=== PATIENT | male | born 1945 | race Caucasian/White ===

== ENCOUNTER → 2018-10-21 08:52 | Outpatient (CLI) | payer OTHER, SELFPAY ==
--- NOTE | 2018-10-21 | DI.MRI.S_ITS ---
PROCEDURE: MR BRAIN (IAC) WWO CON INDICATIONS: Other cerebrovascular disease TECHNIQUE: Noncontrast sagittal T1 spin echo, axial FLAIR, axial gradient echo, axial diffusion and ADC through the brain. Axial thin-slice 3D CISS, coronal TruFISP, axial T1 spin echo with fat saturation through the internal auditory canals. After the administration of contrast, thin slice axial and coronal T1 spin echo with fat saturation through the internal auditory canals, and axial T1 spin echo with fat saturation through the brain. COMPARISON: [facility], , [employer], 07/04/2016, 12:44. FINDINGS: Image quality: Excellent. Cerebellopontine angles: No cerebellopontine angle masses. Inner ear structures appear normally formed. No suspicious enhancement in the internal auditory canal or along the course of the 7th cranial nerve. CSF spaces: Ventricles are normal in size and shape. No extra-axial fluid collections. Basal cisterns are patent. Brain: No intracranial bleeds or mass effects. Singh-white matter interface is intact. No abnormal intracranial enhancement. Diffusion weighted images demonstrate no acute ischemic insults. Brainstem appears normal. Normal intravascular flow voids are present. Skull and face: Calvarial marrow signal is normal. Orbits appear normal. Sinuses: Mild to moderate mucosal thickening is seen within the left maxillary sinus. Mild mucosal thickening is seen elsewhere within the paranasal sinuses. There is moderate fluid seen within the right mastoid air cells. IMPRESSION: No significant abnormality is seen. Specifically, no masses or abnormal enhancement are seen within the cerebellopontine angle cisterns or within the internal auditory canals. No masses or abnormal enhancement can be seen elsewhere. No findings of acute or subacute infarction can be seen. Dictated by: Liang Lemon M.D. on 10/21/2018 at 9:27 Approved by: Liang Lemon M.D. on 10/21/2018 at 9:30
== END ==
PROVIDERS: PCP Internal Medicine; Visit Provider Internal Medicine
DX: I67.89 Other cerebrovascular disease (principal)
CPT/HCPCS: 70553; A9579

== ENCOUNTER 2019-04-08 12:00 | Outpatient (RCR) | payer OTHER, SELFPAY ==
--- NOTE | 2019-03-03 17:30 | PT.OPPOC ---
Current Diagnoses Benign paroxysmal vertigo, unspecified ear (03/03/19) Dizziness and giddiness (03/03/19) Provider Visit Care Team Role Provider Type Osvaldo Chandler MD Attending Provider Physician Primary Care Provider Specialty: Internal Medicine Address: [address] [place] [address], [id number] Email: Plan Of Care PT-OP-T Assessment and Plan Start: 03/03/19 17:40 Freq: Status: Active Protocol: Document 03/03/19 15:15 DCW (Rec: 03/04/19 08:53 DCW [id number]) Physical Therapy Assessment Rehab Potential Rehabilitation Potential Good Evaluation Complexity Number of Personal Factors/Comorbidities 0 Number of Body Systems Impaired 1-2 Clinical Presentation at Evaluation Stable Impairments Impairments Balance Vestibular Goals One Impairment Ongoing subjective complaints of occasional imbalance Janitorial Tech Goal (LTG) Pt to report no sensation of imbalance with quick head turns LTG Duration 04/03/19 Assessment Summary Assessment Pt presents with an entirely negative vestibular evaluation , with the exception of a mildly positive bilaterally thrust and heave tests, which is likely suggestive of normal age-related vestibular loss. Pt has no indications of either central or peripheral vestibular dysfunction. Pt's subjective explanation of his history is fairly suggestive of BPPV, especially his episodes of vertigo with rolling in bed, and the fact that self-treating with CRM appears to have helped eliminate that symptom. 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 Due to the waxing and waning nature of BPPV, however, sometimes pt presents with a negative evaluation. Pt should return within the next week or two for a reassessment of positional testing, as well as other balance testing, to determine further course of action. Physical Therapy Plan Frequency and Duration Frequency of Treatment 1x/Week Duration of Treatment 8 weeks Plan of Care Start Date 03/03/19 Plan of Care End Date 04/28/19 Therapeutic Interventions Therapeutic Interventions Balance Training Canalithic Repositioning Vestibular Rehabilitation Next Visit Focus/Plan Next Note Type Treatment Note Next Visit Plan Balance testing, Positional retesting, CRM as indicated Plan of Care Dates Plan of Care Start Date 03/03/19 Plan of Care End Date 04/28/19 Please Sign and Return: I have reviewed this Plan of Care and certify that the skilled therapy services above are required to meet the patient?s needs. Physician Signature Date Printed Name and Credentials Clinical Instructor Signature Printed Name and Credentials
--- NOTE | 2019-03-03 17:30 | PT.OIE ---
Current Diagnoses Benign paroxysmal vertigo, unspecified ear (03/03/19) Dizziness and giddiness (03/03/19) Provider Visit Care Team Role Provider Type Osvaldo Chandler MD Attending Provider Physician Primary Care Provider Specialty: Internal Medicine Address: [address] [place] [address], [id number] Email: Physical Therapy Initial Evaluation PT-OP-A Visit Information Start: 03/03/19 17:40 Freq: Status: Active Protocol: Document 03/03/19 15:15 DCW (Rec: 03/04/19 08:53 DCW [id number]) Out-Patient Physical Therapy Visit Information Visit Information Visit Type Initial Evaluation Visit Start Time 15:15 Visit Stop Time 16:05 Total Visit Minutes 50 Visit Number 1 Number of TRANSITION SOCIAL WORKER Visits 0 Evaluation Information Evaluation Date 03/03/19 PT-OP-B Current Condition Start: 03/03/19 17:40 Freq: Status: Active Protocol: Document 03/03/19 15:15 DCW (Rec: 03/04/19 08:53 DCW [id number]) Current Condition History of Current Condition Onset Date Six months Current Complaints Imbalance, occasional episodes of vertigo History of Current Condition Pt is a 74 year old male complaining of a 6 month history of dizziness. Pt notes that initially, he had a few episodes of vertigo lasting 10 seconds when rolling over onto his right side in bed. Pt reports he was seen by a physician, diagnosed with positional vertigo, and told to bring up videos on YouTube to fix it. Pt reports that since he did that, he has not been having the same sudden-onset dizziness, however is now experiencing a general sense of imbalance. Pt does admit that he has had two recent incidents of spinning vertigo, again lasting about 10 seconds, however he is unsure of any positional changes preceding these events. 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 Pt denies recent hearing changes, tinnitus, diplopia, dysarthria, discoordination, or decreased mentation/ consciousness. Pt reports symptoms are waxing/waning in nature. Pt denies hx of HTN, diabetes, arrhythmia, head trauma, seizure, migraines, back/neck problems, anxiety/ panic disorders, depression, or excessive smoking or drinking. Prior Treatments and Tests Brain MRI: Negative Treatment Goals Patient/Caregiver Goals Eliminate sensations of vertigo/imbalance Prior Functional Status Baseline Function- ADL's Independent Baseline Function- Mobility Independent Current Functional Impairments (Reported) Functional Limitations- Other Pt notes he is not limited in anything, he is just tired of feeling off-balance PT-OP-C Subjective Start: 03/03/19 17:40 Freq: Status: Active Protocol: Document 03/03/19 15:15 DCW (Rec: 03/04/19 08:53 DCW [id number]) OP-PT Subjective Patient Comments Patient Comments It's just difficult putting my finger on what's happening. I can't really match it to anything I'm doing, it just seems to come and go. Patient Questionnaires ABC- Activity Specific Balance Confidence Scale ABC Score 92.19 ABC Functional Impairment 1 to <20% Impaired (Score 81- 99) Dizziness Handicap Inventory DHI Score 14% DHI Functional Impairment 1 to 19% Impaired (Score 1-19) OP-PT Pain Assessment Pain Assessment Grid Paper Pain Assessment Grid Completed Yes: N/A PT-OP-D Balance Start: 03/03/19 17:40 Freq: Status: Active Protocol: Document 03/03/19 15:15 DCW (Rec: 03/04/19 08:53 DCW [id number]) OP-PT Balance Assessment Sitting Balance Static Sitting Balance Ability Normal Dynamic Sitting Balance Ability Normal Standing Balance Static Standing Balance Ability Normal Dynamic Standing Balance Ability Normal Balance Tests Romberg Romberg WNL Single Limb Standing Single Limb- Right WNL Single Limb- Left WNL Amezquita Fall Scale Copyright Permission PT-OP-O Vestibular Start: 03/03/19 17:40 Freq: Status: Active Protocol: Document 03/03/19 15:15 DCW (Rec: 03/04/19 08:53 DCW [id number]) Vestibular Assessment Screening Tests Vestibular Artery Screen Negative Sharp-Cristiane Test Negative Auditory Tests Stark Test Negative Rinne Test Negative Air Conduction Results Equal Visual Testing Smooth Pursuits Horizontal WNL Smooth Pursuits Vertical WNL Saccades Horizontal WNL Gaze Evoked Nystagmus With Fixation Negative Gaze Evoked Nystagmus Without Fixation Negative Heave Test Positive Bilateral Thrust Head Positive Bilateral DVA (Line Degradation) 2 Head Shake Negative Spontaneous Nystagmus Negative Positional Testing [place]-Hallpike Negative Left Negative Right Rolling Test Negative Left Negative Right Supine to Sit Negative Sit to Supine Negative Comments Vestibular Comments Thrust/heave tests mildly positive bilaterally PT-OP-T Assessment and Plan Start: 03/03/19 17:40 Freq: Status: Active Protocol: Document 03/03/19 15:15 DCW (Rec: 03/04/19 08:53 DCW [id number]) Physical Therapy Assessment Rehab Potential Rehabilitation Potential Good Evaluation Complexity Number of Personal Factors/Comorbidities 0 Number of Body Systems Impaired 1-2 Clinical Presentation at Evaluation Stable Impairments Impairments Balance Vestibular Goals One Impairment Ongoing subjective complaints of occasional imbalance Chcf Goal (LTG) Pt to report no sensation of imbalance with quick head turns LTG Duration 04/03/19 Assessment Summary Assessment Pt presents with an entirely negative vestibular evaluation , with the exception of a mildly positive bilaterally thrust and heave tests, which is likely suggestive of normal age-related vestibular loss. Pt has no indications of either central or peripheral vestibular dysfunction. Pt's subjective explanation of his history is fairly suggestive of BPPV, especially his episodes of vertigo with rolling in bed, and the fact that self-treating with CRM appears to have helped eliminate that symptom. 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 Due to the waxing and waning nature of BPPV, however, sometimes pt presents with a negative evaluation. Pt should return within the next week or two for a reassessment of positional testing, as well as other balance testing, to determine further course of action. Physical Therapy Plan Frequency and Duration Frequency of Treatment 1x/Week Duration of Treatment 8 weeks Plan of Care Start Date 03/03/19 Plan of Care End Date 04/28/19 Therapeutic Interventions Therapeutic Interventions Balance Training Canalithic Repositioning Vestibular Rehabilitation Next Visit Focus/Plan Next Note Type Treatment Note Next Visit Plan Balance testing, Positional retesting, CRM as indicated
--- NOTE | 2019-04-08 12:37 | PT.OTN ---
Current Diagnoses Benign paroxysmal vertigo, unspecified ear (04/08/19) Physical Therapy Treatment Note PT-OP-A Visit Information Start: 03/03/19 17:40 Freq: Status: Active Protocol: Document 04/08/19 12:00 DCW (Rec: 04/08/19 12:36 DCW [id number]) Out-Patient Physical Therapy Visit Information Visit Information Visit Type Treatment Note Visit Start Time 12:00 Visit Stop Time 12:30 Total Visit Minutes 30 Visit Number 2 Number of MODEL ENGINE MECHANIC Visits 0 Evaluation Information Evaluation Date 03/03/19 PT-OP-B Current Condition Start: 03/03/19 17:40 Freq: Status: Active Protocol: Document 03/03/19 15:15 DCW (Rec: 03/04/19 08:53 DCW [id number]) Current Condition History of Current Condition Onset Date Six months Current Complaints Imbalance, occasional episodes of vertigo History of Current Condition Pt is a 74 year old male complaining of a 6 month history of dizziness. Pt notes that initially, he had a few episodes of vertigo lasting 10 seconds when rolling over onto his right side in bed. Pt reports he was seen by a physician, diagnosed with positional vertigo, and told to bring up videos on [employer] to fix it. Pt reports that since he did that, he has not been having the same sudden-onset dizziness, however is now experiencing a general sense of imbalance. Pt does admit that he has had two recent incidents of spinning vertigo, again lasting about 10 seconds, however he is unsure of any positional changes preceding these events. 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 Pt denies recent hearing changes, tinnitus, diplopia, dysarthria, discoordination, or decreased mentation/ consciousness. Pt reports symptoms are waxing/waning in nature. Pt denies hx of HTN, diabetes, arrhythmia, head trauma, seizure, migraines, back/neck problems, anxiety/ panic disorders, depression, or excessive smoking or drinking. Prior Treatments and Tests Brain MRI: Negative Treatment Goals Patient/Caregiver Goals Eliminate sensations of vertigo/imbalance Prior Functional Status Baseline Function- ADL's Independent Baseline Function- Mobility Independent Current Functional Impairments (Reported) Functional Limitations- Other Pt notes he is not limited in anything, he is just tired of feeling off-balance PT-OP-C Subjective Start: 03/03/19 17:40 Freq: Status: Active Protocol: Document 04/08/19 12:00 DCW (Rec: 04/08/19 12:36 DCW [id number]) OP-PT Subjective Patient Comments Patient Comments I really haven't had any issues since I was in here last. I've just kind of stopped focusing on it. I was on vacation for the past month , swimming and biking every day, and had no problems. PT-OP-D Balance Start: 03/03/19 17:40 Freq: Status: Active Protocol: Document 04/08/19 12:00 DCW (Rec: 04/08/19 12:36 DCW [id number]) Balance Tests CTSIB CTSIB Position 1 Slight Sway CTSIB Position 2 Slight Sway CTSIB Position 3 Mild Sway CTSIB Position 4 Mild Sway CTSIB Position 5 Mild Sway CTSIB Position 6 Mild Sway PT-OP-E Functional Tests Start: 04/08/19 12:30 Freq: Status: Active Protocol: Document 04/08/19 12:00 DCW (Rec: 04/08/19 12:36 DCW [id number]) Functional Tests Functional Gait Assessment Score 30/30 Functional Gait Assessment Impairment 0% Impaired (Score 30) Rating PT-OP-O Vestibular Start: 03/03/19 17:40 Freq: Status: Active Protocol: Document 04/08/19 12:00 DCW (Rec: 04/08/19 12:36 DCW [id number]) Vestibular Assessment Positional Testing Mountain-Hallpike Negative Left Negative Right Rolling Test Negative Left Negative Right Supine to Sit Negative Sit to Supine Negative PT-OP-Q Treatments Start: 03/03/19 17:40 Freq: Status: Active Protocol: Document 04/08/19 12:00 DCW (Rec: 04/08/19 12:36 DCW [id number]) Manual Therapy Treatment Other Other Manual Treatments Positional Testing Neuro Re-Education Treatment Other Activities Testing Details CTSIB, FGA PT-OP-T Assessment and Plan Start: 03/03/19 17:40 Freq: Status: Active Protocol: Document 04/08/19 12:00 DCW (Rec: 04/08/19 12:36 DCW [id number]) Physical Therapy Assessment Impairments Impairments Balance Vestibular Goals One Impairment Ongoing subjective complaints of occasional imbalance Medical Videographer Goal (LTG) Pt to report no sensation of imbalance with quick head turns LTG Duration Met Assessment Summary Assessment Pt again has no indication of BPPV or otther vestibular disorder, no evidence of imbalance with CTSIB or FGA. Pt feels he has not been noticing any ongoing issues. Pt appropriate for d/c at this time. Physical Therapy Plan Frequency and Duration Frequency of Treatment 1x/Week Duration of Treatment 8 weeks Plan of Care Start Date 03/03/19 Plan of Care End Date 04/28/19 Therapeutic Interventions Therapeutic Interventions Balance Training Canalithic Repositioning Vestibular Rehabilitation Discharge Physical Therapy Discharge Reasons Goals Met Next Visit Focus/Plan Next Note Type Discharge Summary
== END 2019-04-08 14:34 | disposition home or self-care (01) ==
LOC: PHYS 12:00
PROVIDERS: PCP Internal Medicine; Visit Provider Internal Medicine
DX: H81.10 Benign paroxysmal vertigo, unspecified ear (principal)
CPT/HCPCS: 97112; 97140; 97161

== ENCOUNTER 2019-09-25 03:14 | Emergency (ER) | payer MEDICARE, SELFPAY ==
[2019-09-25 03:18] VITALS: BP 156/91; PULSE 85; RESP 16; TEMP 36.9; O2SAT 100; BMI 23.6
--- NOTE | 2019-09-25 03:27 | PC.NURSE ---
awoke from sleep with sharp right shoulder pain that radiates down right arm causing some numb tingling sensations.
--- NOTE | 2019-09-25 03:27 | ED.BACK ---
HPI - Back Pain/Injury General Chief Complaint: Back Pain/Injury Stated Complaint: Radiating back pain Time Seen by Provider: 09/25/19 03:27 Source: patient Mode of arrival: Ambulatory Limitations: no limitations History of Present Illness HPI Narrative: 74-year-old male here for evaluation of right upper back pain with tingling in his right hand. Patient states that he woke up from his sleep to go use the restroom when he started noticing pain in his right upper back in the then had pain in his right arm. His rubbed some topical cream on the area and provided some massage. Patient states that during his drive here to the ER his symptoms have greatly improved. He had no chest pain. No other neurologic symptoms. Has never anything like this in the past. Related Data Allergies Allergy/AdvReac Type Severity Reaction Status Date / Time No Known Allergies Allergy Uncoded 12/23/17 11:49 Review of Systems Constitutional Constitutional: Denies fever(s), Denies frequent falls, Denies headache(s) and Denies weakness Eyes Eyes: Denies change in vision and Denies diplopia ENT Ears, Nose, Mouth, and Throat: Denies vertigo, Denies dizziness, Denies dry mouth, Denies headache(s) and Denies disequilibrium Cardiovascular Cardiovascular: Denies chest pain, Denies rapid heart rate and Denies dyspnea Respiratory Respiratory: Denies dyspnea Gastrointestinal Gastrointestinal: Denies abdominal pain, Denies nausea and Denies vomiting Genitourinary Genitourinary: Denies dysuria Musculoskeletal Musculoskeletal: Denies myalgias and Reports tingling Comments: Right shoulder pain Integumentary/Breasts Skin/Breast: Denies rash Neurologic Neurologic: Denies abnormal speech, Denies behavioral changes, Denies confusion, Denies vertigo, Denies dizziness, Denies frequent falls, Denies headache(s), Denies focal weakness, Reports tingling, Denies paresthesias, Denies disequilibrium and Denies weakness Psychiatric Psychiatric: Denies behavioral changes and Denies confusion Patient History Medical History Healthy adult (Acute) Social History Smoking Status: Never smoker Smoking Status: Never smoker alcohol intake frequency: 0-2 drinks per day Alcohol type: wine Substance Use Type: does not use Exam Initial Vital Signs Initial Vital Signs: Vital Signs Temperature 98.4 F 09/25/19 03:18 Pulse Rate 85 09/25/19 03:18 Respiratory Rate 16 09/25/19 03:18 Blood Pressure 156/91 H 09/25/19 03:18 Pulse Oximetry 100 09/25/19 03:18 Const General: cooperative, healthy appearing and comfortable HENMT Head: normal to inspection and normocephalic Resp Effort & Inspection: normal respiratory effort Auscultation: clear to auscultation bilaterally Cardio Rate: regular rate Rhythm: regular rhythm Back/Spine/Pelvis Other: Tenderness to palpation over the rhomboids and levator scapulae on the right. Skin Lesions: no lesions Rashes: no rashes Neuro General: alert, awake and oriented x3 Sensory Exam: no sensory deficits noted Extrem General: normal to inspection and capillary refill normal Course Orders Ordered: ED Orders 09/25/19 03:27 EKG-12 Lead Stat Vital Signs Vital signs: Vital Signs - 8 hr 09/25/19 03:18 Temperature 98.4 F Pulse Rate 85 Respiratory Rate 16 Blood Pressure 156/91 H Pulse Oximetry 100 MDM - Back Pain/Injury ECG Data Attestation: I personally reviewed and interpreted this ECG as follows: Prior ECG tracings: not available for review Interpretation: Sinus rhythm Ventricular rate 82 Normal axis LVH Normal QTC No ST T wave changes MDM Narrative Medical decision making narrative: Patient was concerned about having a heart attack. His EKG is unremarkable. I've low suspicion for ACS. I do suspect this is musculoskeletal issue. His symptoms seemed to have improved. We'll hold on further work up for now. They're given return precautions and follow-up instructions. They expressed understanding and agreement plan. Discharge Plan Departure Patient Disposition: Home Clinical Impression: Radiculopathy of arm Right shoulder pain Qualifiers: Chronicity: acute Qualified Code(s): M25.511 - Pain in right shoulder Activity Restrictions/Additional Instructions: Recommend you do the light stretching like we discussed. If your symptoms worsen please return to the emergency department. Contact your primary provider for follow-up Referrals: Osvaldo Chandler MD [Primary Care Provider] -
== END 2019-09-25 03:54 | disposition home or self-care (01) ==
PROVIDERS: Emergency Provider Emergency Medicine; PCP Internal Medicine
DX: M54.10 Radiculopathy, site unspecified (principal); M25.511 Pain in right shoulder
CPT/HCPCS: 93005; 99282; 99283

== ENCOUNTER → 2021-01-29 19:21 | Outpatient (ROUT) | payer MEDICARE, SELFPAY ==
[2021-01-29 20:00] LABS: Add Manual Diff / Slide Review NO; Basophils Absolute Auto 0 /uL (0-100); Basophils Percent Auto 0.6 % (0-2); Eosinophils Absolute Auto 100 /uL (0-450); Eosinophils Percent Auto 1.5 % (2-4); Hematocrit 43.6 % (41-53); Hemoglobin 14.8 g/dL (13.5-17.5); Lymphocytes Absolute Auto 1300 /uL (1100-4500); Lymphocytes Percent Auto 22.1 % (25-40); Mean Corpuscular HGB Conc 33.9 % (30-36); Mean Corpuscular Hemoglobin 32.5 PG (26-34); Mean Corpuscular Volume 95.9 fL (80-100); Monocytes Absolute Auto 800 /uL (0-900); Monocytes Percent Auto 12.5 % (3-14); Neutrophils Absolute Auto 3900 /uL (1500-7000); Neutrophils Percent Auto 63.3 % (50-75); Platelet Count 324 X10^3/uL (150-400); Red Blood Cell Count 4.55 X10^6/uL (4.5-5.9); Red Cell Distribution Width 13.4 % (11.6-14.8); White Blood Cell Count 6.1 X10^3/uL (4.5-11.0)
[2021-01-29 20:18] LABS: Aspartate Aminotransferase 36 IU/L (17-59); BUN Creatinine Ratio 18.3 (6-22); Blood Urea Nitrogen 13 mg/dL (9-20); Calcium 9.8 mg/dL (8.4-10.2); Carbon Dioxide 26 mmol/L (22-32); Chloride 105 mmol/L (98-107); Cholesterol 214 mg/dL (140-199); Estimated Glomerular Filt Rate > 60.0 mL/min (>60); Glucose 79 mg/dL (80-110); HDL Cholesterol 54 mg/dL (40-60); HEMOLYSIS < 15 (0-50); LDL Cholesterol Calculated 126 mg/dL (<100); Potassium 4.7 mmol/L (3.4-5.1); Sodium 139 mmol/L (137-145); Triglycerides 170 mg/dL (35-150)
[2021-01-29 20:48] LABS: Prostate Specific Antigen 0.846 ng/mL (0.10-4.00)
== END ==
PROVIDERS: PCP Internal Medicine; Visit Provider Internal Medicine
DX: I10 Essential (primary) hypertension (principal)
CPT/HCPCS: 80048; 80061; 84153; 84450; 85025

== ENCOUNTER → 2021-03-29 09:25 | Outpatient (CLI) | payer OTHER, SELFPAY ==
[2021-03-29 11:36] LABS: COVID19 -Nasal RAPID Negative (Negative)
== END ==
PROVIDERS: PCP Internal Medicine; Visit Provider Surgery
DX: Z01.812 Encounter for preprocedural laboratory examination (principal); Z20.822 Contact with and (suspected) exposure to COVID-19
CPT/HCPCS: 87635; C9803

== ENCOUNTER 2021-04-01 09:40 | Day surgery (SDC) | payer OTHER, SELFPAY ==
[2021-04-01] VITALS (7 sets, daily range): BP systolic 97–144; BP diastolic 60–79; PULSE 76–91; RESP 12–16; TEMP 36.2–37.1; O2SAT 95–100; BMI 22.3
--- NOTE | 2021-04-01 | PATH_ITS ---
[facility] Accession Number: [id number] . 01 Material submitted: . colon - ASCENDING COLON POLYP . 02 Diagnosis: Ascending Colon, Polyp, Biopsy: Colonic mucosa with no diagnostic abnormality, consistent with polypoid redundancy. Additional levels were examined. Negative for dysplasia and malignancy. MRV 04/05/2021 1439 Local . 02 Electronically signed: . Lenore Hook MD, Pathologist NPI- [id number] . 01 Gross description: . ASCENDING COLON POLYP: Received in formalin is 1 fragment(s) of marie, soft tissue measuring 0.7 x 0.7 x 0.2 cm submitted entirely in 1 cassette(s) /HEBER 04/02/2021 0527 Local . 02 Pathologist provided ICD-10: K63.5 . 02 CPT . 981784 Performed at: 01 [facility] [address], [place], [place] [id number] MD Johnson Chery MD Phone: [phone] Performed at: [facility] [address] [place], [place] [id number] MD Lenore Hook MD Phone: [phone]
[2021-04-01] MEDS: LACTATED RINGERS 1,000 ML 200 ML IV (10:28)
--- NOTE | 2021-04-01 10:37 | P.HP_ITS ---
History of Present Illness History of Present Illness Date Patient Seen: 04/01/21 Time Patient Seen: 10:37 Chief complaint: SDC Narrative: The patient presents for colorectal sreening. Previous colonoscopy 2009 normal. No personal or family history of colon cancer. On further history denies any recent gastrointestinal symptoms. No nausea, vomiting, abdominal pain, loss of appetite, unexplained weight loss, change in bowel habits, diarrhea, constipation, melena, hematochezia, or bright red blood per rectum. Patient History Medical History Healthy adult Comment: Extensive abdominal surgery in childhood unspecified Family & Social History Social History: household members spouse Tobacco & Substance use: Smoking Status Never smoker alcohol intake frequency 0-2 drinks per day Substance Use Type does not use Meds Home Medications and Allergies Home Medications Medication Instructions Recorded Confirmed Type clopidogrel 75 mg tablet 75 mg PO DAILY 04/01/21 04/01/21 History ezetimibe 10 mg tablet 10 mg PO DAILY 04/01/21 04/01/21 History Allergies Allergy/AdvReac Type Severity Reaction Status Date / Time Ktxcowt-Jww-Etk Reductase AdvReac Muscle Pain Verified 04/01/21 09:58 Inhibitor Review of Systems Review of Systems ROS: Yes All systems reviewed with the patient and are negative except as otherwise documented Exam Vital Signs (past 8 hours): - 04/01/21 10:04 Temperature 97.2 F L Pulse Rate 91 H Respiratory Rate 14 Blood Pressure 144/79 H Pulse Oximetry 100 Oxygen Delivery Method Room Air Narrative Exam Narrative: GENERAL-well developed elderly male, no acute distress HEENT-no scleral icterus, hearing intact NECK-no JVD, trachea midline CVS- regular rate, no peripheral edema RESP-unlabored respiratory effort, no audible wheezing GI-soft, nontender nondistended MSK-no cyanosis or clubbing, extremities without deformity SKIN-warm, dry NEURO-alert and oriented, no focal deficits PYSCH-Appropriate mood and affect Assessment & Plan Assessment & Plan narrative: The patient requires colorectal screening and c olonoscopy is recommended. Technical details were discussed. Risks, benefits, alternatives explained. Risks including but not limited to myocardial infarction, aspiration, bleeding, pain, missed lesion, incomplete examination, need for further radiographic studies, colonic perforation, and need for major abdominal surgery were discussed. All questions were answered to their satisfaction, and they are in agreement with this plan.
[2021-04-01] MEDS: fentaNYL 250 MCG/5 ML INJ IV (11:03)
[2021-04-01] MEDS: MIDAZOLAM 5 MG/5 ML VIAL IV (11:03)
--- NOTE | 2021-04-01 11:06 | PM.OP.ENDO ---
Operative Date/Time/Diagnoses Date of procedure: 04/01/21 Time of procedure: 11:06 Pre-op diagnosis: Screening colonoscopy Post-op diagnosis: same Procedure & Clinicians Study performed: Colonoscopy Same procedure as scheduled: Yes Indications: Screening Surgeon: Morgan Melendez Procedure Notes Procedure in detail: Medications: Conscious sedation using 7mg IV midazolam and 200mcg IV of fentanyl The history and physical was performed/updated and the patient is ASA class is 2. The procedure was discussed in detail with the patient. Potential risks complications including infection, bleeding, missed diagnosis, perforation, need for surgery, and were explained. Their questions were answered and informed consent was obtained. Patient was brought to the procedure room and placed standard monitoring equipment. The patient's vital signs were monitored continuously throughout the entire procedure. Prior to starting time-out was performed. The patient was placed in the left lateral recumbent position. Procedural sedation was administered. Examination began with a thorough inspection of the perianal area there was no evidence of fissures, fistulae, external hemorrhoids or cutaneous malignancy. The colonoscopy scope was then placed into the anal canal and was advanced to the cecum, which was identified by the ileocecal valve, the appendiceal orifice and the confluence of the taenia. The scope was then slowly withdrawn examining colon thoroughly in all directions, irrigating it of any residual stool. 1. 1 cm polyp ascending colon removed by cold snare 2. Sigmoid diverticulosis 3. Grade 1 internal hemorrhoids The patient tolerated the procedure well. They will be discharged once criteria are met. The prep was of good/excellent quality. The withdrawl time was 6 minutes. The sedation time was 22 minutes. Specimen(s): other (ascending polyp) Complications: none Impression: colonic polyp Post-procedure Recommendations: Colonscopy in 5 years Disposition: same day surgery
--- NOTE | 2021-04-01 11:33 | SUR.PHASEI ---
Stable PACU stay.
== END 2021-04-01 11:51 | disposition home or self-care (01) ==
PROVIDERS: PCP Internal Medicine; Referring Provider Surgery; Visit Provider Surgery
PROC: 0DJD8ZZ Inspection of Lower Intestinal Tract, Via Natural or Artificial Opening Endoscopic (ICD-10-PCS; CPT 45378; principal; 2021-04-01 10:45)
DX: Z12.11 Encounter for screening for malignant neoplasm of colon (principal); K57.30 Diverticulosis of large intestine without perforation or abscess without bleeding; K64.0 First degree hemorrhoids
CPT/HCPCS: 45378; 99152; J2250; J3010

== ENCOUNTER → 2022-03-04 07:20 | Outpatient (CLI) | payer OTHER, SELFPAY ==
[2022-03-04 09:57] LABS: Cholesterol 160 mg/dL (140-199); HDL Cholesterol 57 mg/dL (40-60); LDL Cholesterol Calculated 84 mg/dL (<100); Triglycerides 93 mg/dL (35-150)
== END ==
PROVIDERS: PCP Internal Medicine; Referring Provider Nurse Practitioner; Visit Provider Nurse Practitioner
DX: E78.2 Mixed hyperlipidemia (principal)
CPT/HCPCS: 36415; 80061

== ENCOUNTER 2022-03-22 17:28 | Emergency (ER) | payer OTHER, SELFPAY ==
[2022-03-22 17:52] VITALS: BP 174/86; PULSE 72; RESP 18; TEMP 37.2; O2SAT 99; BMI 21.5
--- NOTE | 2022-03-22 18:11 | DI.CT.S_ITS ---
PROCEDURE: CT FACIAL BONES WO CON INDICATIONS: fall from height, modified trauma, on thinners TECHNIQUE: Noncontrast 2.5 mm thick axial images acquired from the mandible through the frontal sinuses, with coronal and sagittal reformatting. For radiation dose reduction, the following was used: automated exposure control, adjustment of mA and/or kV according to patient size. COMPARISON: None. FINDINGS: Image quality: Excellent. Bones and teeth: Orbital mccain are intact. Sinus mccain show no fracture or deformity. Nasal bones and septum are intact. Visualized portions of the mandible demonstrate no fractures or subluxation. Zygomatic arches are intact. Pterygoid plates are intact. Visualized portions of the skull base and auditory canals are intact. Sinuses: Mastoid air cells are aerated. Postsurgical sinus changes are present. Scattered areas of mucosal thickening as well as mucous retention cyst versus polyps are present in the she sphenoid and maxillary sinuses. Minimal scattered mucosal thickening is present in the frontal and ethmoid air cells. Soft tissues: No edema, masses, or fluid collections. No enlarged lymph nodes. No soft tissue lacerations or debris. Vascular: Visualized vascular structures appear normal in the absence of contrast. Bony vascular foramina and canals are intact. IMPRESSION: No visualized fracture. Dictated by: Amanda Miller M.D. on 03/22/2022 at 18:56 Approved by: Amanda Miller M.D. on 03/22/2022 at 18:59
--- NOTE | 2022-03-22 18:11 | DI.CT.S_ITS ---
PROCEDURE: CT CERVICAL SPINE WO CON INDICATIONS: fall from height, modified trauma, on thinners TECHNIQUE: Noncontrast 3 mm thick sections acquired from the skull base to the T4 level. Sagittal and coronal reformats were then constructed. For radiation dose reduction, the following was used: automated exposure control, adjustment of mA and/or kV according to patient size. COMPARISON: None. FINDINGS: Image quality: Excellent. Bones: No fractures or dislocations. Visualized superior ribs are intact. Soft tissues: Prevertebral soft tissues are normal in thickness. No paravertebral hematomas. No apical pneumothoraces. IMPRESSION: No visualized fracture. Dictated by: Amanda Miller M.D. on 03/22/2022 at 18:33 Approved by: Amanda Miller M.D. on 03/22/2022 at 18:34
--- NOTE | 2022-03-22 18:11 | DI.CT.S_ITS ---
PROCEDURE: CT HEAD/BRAIN WO CON INDICATIONS: fall from height, modified trauma, on thinners TECHNIQUE: Noncontrast 4.5 mm thick angled axial sections acquired from the foramen magnum to the vertex, with coronal and sagittal reformats. For radiation dose reduction, the following was used: automated exposure control, adjustment of mA and/or kV according to patient size. COMPARISON: [facility], CT, CT FACIAL BONES WO CON, 03/22/2022, 18:17. [facility], CT, HEAD WITHOUT CONTRAST, 06/23/2011, 11:39. FINDINGS: Image quality: Excellent. CSF spaces: Basal cisterns are patent. No extra-axial fluid collections. The ventricles are symmetric in size and shape. Brain: No intracranial bleeds or masses. There is cerebral volume loss for age, with resultant ventricular and sulcal prominence. There are periventricular and deep white matter chronic small vessel ischemic changes. There is intracranial internal carotid artery atherosclerosis. Skull and face: Calvarium and visualized facial bones appear intact, without suspicious lesions. Sinuses: Visualized sinuses demonstrate scattered areas of mucosal thickening. IMPRESSION: 1. No acute intracranial process. 2. Moderate atrophy and chronic microvascular ischemic changes. Dictated by: Amanda Miller M.D. on 03/22/2022 at 18:43 Approved by: Amanda Miller M.D. on 03/22/2022 at 18:44
[2022-03-22 19:58] VITALS: BP 147/75; PULSE 76; RESP 18; O2SAT 99
--- NOTE | 2022-03-22 20:10 | ED_ITS ---
HPI - Fall General Chief Complaint: Fall Stated Complaint: Head ache for 7 days Time Seen by Provider: 03/22/22 19:54 Source: patient and family Mode of arrival: Ambulatory Limitations: no limitations History of Present Illness HPI Narrative: Patient is a 77-year-old male. 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 Earlier this week he was standing on a scaffolding doing some work outside of his house when he fell and hit his head. There was no loss of consciousness. No other injuries from the event. He did have a worsening headache afterwards for short period of time but his headache now is back to what it was like prior to the fall. He states that he gets ?waves? of discomfort in his head which is slightly different from his baseline headache. Related Data Home Medications Medication Instructions Recorded Confirmed clopidogrel 75 mg tablet 75 mg PO DAILY 04/01/21 04/01/21 ezetimibe 10 mg tablet 10 mg PO DAILY 04/01/21 04/01/21 Previous Rx's Medication Instructions Recorded sumatriptan 20 mg/actuation nasal 20 mg intranasal Q2H PRN migraine 03/22/22 spray (Imitrex) headache #6 ea Allergies Allergy/AdvReac Type Severity Reaction Status Date / Time Dwedety-AGG-QgT Reductase AdvReac Muscle Pain Verified 04/01/21 09:58 Inhibitor [Cwhngxp-Tkq-Olc Reductase Inhibitor] Review of Systems Constitutional Constitutional: Denies fever(s) and Reports headache(s) Eyes Eyes: Denies change in vision ENT Ears, Nose, Mouth, and Throat: Denies vertigo, Denies dizziness and Reports headache(s) Cardiovascular Cardiovascular: Denies chest pain and Denies dyspnea Respiratory Respiratory: Denies dyspnea Gastrointestinal Gastrointestinal: Denies abdominal pain Musculoskeletal Musculoskeletal: Reports system reviewed and no additional complaints, except as documented Integumentary/Breasts Skin/Breast: Reports system reviewed and no additional complaints, except as documented Neurologic Neurologic: Denies confusion, Denies vertigo, Denies dizziness and Reports headache(s) Psychiatric Psychiatric: Denies confusion Hematologic/Lymphatic On Anticoagulants: No Patient History Medical History Healthy adult Social History household members: spouse Smoking Status: Never smoker Smoking Status: Never smoker alcohol intake frequency: 0-2 drinks per day Alcohol type: wine Substance Use Type: does not use Exam Initial Vital Signs Initial Vital Signs: Vital Signs Temperature 98.9 F 03/22/22 17:52 Pulse Rate 72 03/22/22 17:52 Respiratory Rate 18 03/22/22 17:52 Blood Pressure 174/86 H 03/22/22 17:52 Pulse Oximetry 99 03/22/22 17:52 Oxygen Delivery Method 03/22/22 17:52 Const General: cooperative, healthy appearing and comfortable [facility] Head: normal to inspection Face and sinus: normal facial exam, no crepitus and tenderness Eyes General: Yes appearance normal, both eyes and all related structures Periorbital: periorbital findings normal Resp Effort & Inspection: normal respiratory effort Auscultation: clear to auscultation bilaterally Cardio Rate: regular rate Skin General: no rashes or lesions noted Neuro General: patient alert, patient awake, patient oriented x3 and moves all extremities Cognition: normal cognition Speech: speech normal Sensory Exam: no sensory deficits noted Extrem General: normal to inspection and capillary refill normal Scores GCS [place] coma scale eye opening: Spontaneous [place] coma scale verbal response: Orientated [place] coma scale motor response: Obey commands [place] coma scale total score: 15 Course Orders Ordered: Discontinued Medications Sumatriptan Succinate (Sumatriptan 6 Mg/0.5 Ml Vial) 6 mg SUBCUT NOW ONE Stop: 03/22/22 20:11 Last Admin: 03/22/22 20:30 Dose: 6 mg Documented By: HNG Vital Signs Vital signs: Vital Signs - 8 hr 03/22/22 17:52 03/22/22 19:58 Temperature 98.9 F Pulse Rate 72 76 Respiratory Rate 18 18 Blood Pressure 174/86 H 147/75 H Pulse Oximetry 99 99 Oxygen Delivery Method Room Air Room Air MDM - Fall Imaging Data CT - cervical spine: Radiologist's Impression: [address] [address] [address] Scan Report Signed Patient: Shawn Soni MR#: [id number] : 1945 Acct:[id number] Age/Sex: 77 / M Date of Service: 03/22/22 Loc: ED Accession Number: [id number] ?? Procedure: CT cervical spine wo con Ordering Provider: Paul Pandya D.O. PROCEDURE:? CT CERVICAL SPINE WO CON ? INDICATIONS:? fall from height, modified trauma, on thinners ? TECHNIQUE:? Noncontrast 3 mm thick sections acquired from the skull base to the T4 level.? Sagittal and coronal reformats were then constructed.? For radiation dose reduction, the following was used:? automated exposure control, adjustment of mA and/or kV according to patient size.? ? COMPARISON:? None. ? FINDINGS:? Image quality:? Excellent.? ? Bones:? No fractures or dislocations.? Visualized superior ribs are intact.? ? Soft tissues:? Prevertebral soft tissues are normal in thickness.? No paravertebral hematomas.? No apical pneumothoraces.? ? ? IMPRESSION:? No visualized fracture. ? Dictated by: Amanda Miller M.D. on 03/22/2022 at 18:33 ? ? Approved by: Amanda Miller M.D. on 03/22/2022 at 18:34? Facial bone CT: Radiologist's Impression: [place] [address] CT Scan Report Signed Patient: Shawn Soni MR#: [id number] : 1945 Acct:[id number] Age/Sex: 77 / M Date of Service: 03/22/22 Loc: ED Accession Number: [id number] ?? Procedure: CT facial bones wo con Ordering Provider: Paul Pandya D.O. PROCEDURE:? CT FACIAL BONES WO CON ? INDICATIONS:? fall from height, modified trauma, on thinners ? TECHNIQUE:? Noncontrast 2.5 mm thick axial images acquired from the mandible through the frontal sinuses, with coronal and sagittal reformatting.? For radiation dose reduction, the following was used:? automated exposure control, adjustment of mA and/or kV according to patient size.? ? COMPARISON:? None. ? FINDINGS:? Image quality:? Excellent.? ? Bones and teeth:? Orbital mccain are intact.? Sinus mccain show no fracture or deformity.? Nasal bones and septum are intact.? Visualized portions of the mandible demonstrate no fractures or subluxation.? Zygomatic arches are intact.? Pterygoid plates are intact.? Visualized portions of the skull base and auditory canals are intact.? ? Sinuses:? Mastoid air cells are aerated.? Postsurgical sinus changes are present.? Scattered areas of mucosal thickening as well as mucous retention cyst versus polyps are present in the she sphenoid and maxillary sinuses.? Minimal scattered mucosal thickening is present in the frontal and ethmoid air cells. ? Soft tissues:? No edema, masses, or fluid collections.? No enlarged lymph nodes.? No soft tissue lacerations or debris.? ? Vascular:? Visualized vascular structures appear normal in the absence of contrast.? Bony vascular foramina and canals are intact.? ? IMPRESSION:? ? No visualized fracture. ? ? Dictated by: Amanda Miller M.D. on 03/22/2022 at 18:56 ? ? Approved by: Amanda Miller M.D. on 03/22/2022 at 18:59?? CT scan - head: Radiologist's Impression: [address] [address] [address] Scan Report Signed Patient: Shawn Soni MR#: [id number] : 1945 Acct:[id number] Age/Sex: 77 / M Date of Service: 03/22/22 Loc: ED Accession Number: [id number] ?? Procedure: CT head/brain wo con Ordering Provider: Paul Pandya D.O. PROCEDURE:? CT HEAD/BRAIN WO CON ? INDICATIONS:? fall from height, modified trauma, on thinners ? TECHNIQUE:? Noncontrast 4.5 mm thick angled axial sections acquired from the foramen magnum to the vertex, with coronal and sagittal reformats.? For radiation dose reduction, the following was used:? automated exposure control, adjustment of mA and/or kV according to patient size.? ? COMPARISON:? [facility], CT, CT FACIAL BONES WO CON, 03/22/2022, 18:17.? [facility], CT, HEAD WITHOUT CONTRAST, 06/23/2011, 11:39. ? FINDINGS:? Image quality:? Excellent.? ? CSF spaces:? Basal cisterns are patent.? No extra-axial fluid collections.? The ventricles are symmetric in size and shape.? ? Brain:? No intracranial bleeds or masses.? There is cerebral volume loss for age, with resultant ventricular and sulcal prominence.? There are periventricular and deep white matter chronic small vessel ischemic changes.? There is intracranial internal carotid artery atherosclerosis.? ? Skull and face:? Calvarium and visualized facial bones appear intact, without suspicious lesions.? ? Sinuses:? Visualized sinuses demonstrate scattered areas of mucosal thickening.? ? IMPRESSION:? ? 1. No acute intracranial process. ? 2. Moderate atrophy and chronic microvascular ischemic changes. ? ? ? Dictated by: Amanda Miller M.D. on 03/22/2022 at 18:43 ? ? Approved by: Amanda Miller M.D. on 03/22/2022 at 18:44?? MDM Narrative Medical decision making narrative: CT scans are unremarkable. Headache that he has currently is the headache that he had prior to his fall. He did get approximately 50% better after the Imitrex but was still having the waves of discomfort. Low suspicion for CVA. Low suspicion for intracranial hemorrhage given his history and exam. We did discuss having abortive medications at home for his monthly headaches. Sent home with a prescription for Imitrex. He was instructed to contact his primary doctor for follow-up. He expressed understanding and agreement. Discharge Plan Departure Patient Disposition: Home Clinical Impression: Headache Instructions: DI for Headache Activity Restrictions/Additional Instructions: We are starting you on a new medicine called Imitrex to try to help with your headaches. Please take it as directed. I also recommend that you talk with your primary doctor regarding your headaches as there is potentially other medications that you can try. Return to the emergency department for any new or worsening symptoms. Prescriptions: New sumatriptan [Imitrex] 20 mg/actuation spray,non-aerosol 20 mg intranasal Q2H PRN (Reason: migraine headache) Qty: 6 0RF Rx Instructions: administer into one nostril as a single dose; if 2nd dose needed,administer into other nostril after at least 2 hrs, NTE 2 doses (40 mg) per episode No Action clopidogrel 75 mg tablet 75 mg PO DAILY ezetimibe 10 mg tablet 10 mg PO DAILY Referrals: Reno Pop MD [Primary Care Provider] - Visit Report Forms: Patient Portal/API
[2022-03-22] MEDS: SUMAtriptan 6 MG/0.5 ML VIAL SUBCUT (20:30)
== END 2022-03-22 21:51 | disposition home or self-care (01) ==
PROVIDERS: Emergency Provider Emergency Medicine; PCP Internal Medicine
DX: R51.9 Headache, unspecified (principal)
CPT/HCPCS: 70450; 70486; 72125; 96372; 99281; 99284; J3030

== ENCOUNTER → 2022-03-27 10:32 | Outpatient (CLI) | payer MEDICARE, SELFPAY ==
--- NOTE | 2022-03-27 | DI.CT.S_ITS ---
PROCEDURE: CT HEAD/BRAIN WO CON INDICATIONS: HEAD TRAUMA TECHNIQUE: Noncontrast 4.5 mm thick angled axial sections acquired from the foramen magnum to the vertex, with coronal and sagittal reformats. For radiation dose reduction, the following was used: automated exposure control, adjustment of mA and/or kV according to patient size. COMPARISON: [facility], CT, CT HEAD/BRAIN WO CON, 03/22/2022, 18:17. FINDINGS: Image quality: Excellent. CSF spaces: Basal cisterns are patent. No extra-axial fluid collections. The ventricles are symmetric in size and shape. Brain: No intracranial bleeds or masses. There is cerebral volume loss for age, with resultant ventricular and sulcal prominence. There are periventricular and deep white matter chronic small vessel ischemic changes. There is intracranial internal carotid artery atherosclerosis. Skull and face: Calvarium and visualized facial bones appear intact, without suspicious lesions. Sinuses: Visualized sinuses and mastoids are clear. IMPRESSION: No acute intracranial disease process. Dictated by: Iris Bedoya MD, PhD on 03/27/2022 at 12:04 Approved by: Iris Bedoya MD, PhD on 03/27/2022 at 12:06
== END ==
PROVIDERS: PCP Internal Medicine
DX: S09.90XA Unspecified injury of head, initial encounter (principal); R51.9 Headache, unspecified; X58.XXXA Exposure to other specified factors, initial encounter
CPT/HCPCS: 70450

== ENCOUNTER → 2022-07-29 08:27 | Outpatient (CLI) | payer MEDICARE, SELFPAY ==
[2022-07-29 10:58] LABS: Alanine Aminotransferase 27 IU/L (<50); Albumin Globulin Ratio 1.5 (1.0-2.8); Alkaline Phosphatase 56 U/L (38-126); Aspartate Aminotransferase 27 IU/L (17-59); BUN Creatinine Ratio 16.9 (6-22); Bilirubin Total 0.5 mg/dL (0.2-1.3); Blood Urea Nitrogen 13 mg/dL (9-20); Calcium 8.9 mg/dL (8.4-10.2); Carbon Dioxide 27 mmol/L (22-32); Chloride 105 mmol/L (98-107); Cholesterol 145 mg/dL (140-199); Estimated Glomerular Filt Rate > 60 mL/min (>60); Globulin 2.7 g/dL (1.7-4.1); Glucose 84 mg/dL (80-110); HDL Cholesterol 54 mg/dL (40-60); HEMOLYSIS < 15 (0-50); LDL Cholesterol Calculated 75 mg/dL (<100); Potassium 4.3 mmol/L (3.4-5.1); Sodium 139 mmol/L (137-145); Total Protein 6.7 g/dL (6.3-8.2); Triglycerides 82 mg/dL (35-150)
== END ==
PROVIDERS: PCP Internal Medicine; Referring Provider Internal Medicine; Visit Provider Internal Medicine
DX: I10 Essential (primary) hypertension (principal)
CPT/HCPCS: 36415; 80053; 80061

== ENCOUNTER → 2023-06-23 09:10 | Outpatient (CLI) | payer OTHER, SELFPAY ==
--- NOTE | 2023-06-23 | DI.RAD.S_ITS ---
PROCEDURE: XR TIBIA FIBULA LT 2V INDICATIONS: LEFT LEG PAIN TECHNIQUE: 2 views of the tibia and fibula were acquired. COMPARISON: None. FINDINGS: Bones: No acute fractures or dislocations. No suspicious bony lesions. Soft tissues: No suspicious soft tissue calcifications or masses. IMPRESSION: No acute osseous abnormality. If the symptoms persist, consider cross sectional imaging such as MRI or CT for further assessment. Approved by: Brandon Morris M.D. on 06/23/2023 at 17:10
== END ==
PROVIDERS: PCP Physician Assistant; Referring Provider Physician Assistant; Visit Provider Physician Assistant
DX: M79.605 Pain in left leg (principal)
CPT/HCPCS: 73590

== ENCOUNTER → 2024-08-30 11:20 | Outpatient (CLI) | payer OTHER, SELFPAY ==
--- NOTE | 2024-08-30 11:24 | DI.RAD.S_ITS ---
PROCEDURE: XR HAND LT MIN 3V INDICATIONS: OSTEOARTHRITIS TECHNIQUE: 3 views of the hand(s) acquired. COMPARISON: [facility], CR, XR HAND RT MIN 3V, 08/30/2024, 11:31. FINDINGS: Bones: No fractures or dislocations. Carpal bones are normally aligned. Erosive arthritic changes at the little finger PIP joint and at the distal tip of the index finger distal phalanx with tiny osseous fragment within the erosion bed. Mild 2nd and 4th PIP joint space narrowing. Soft tissues: No suspicious soft tissue calcifications. IMPRESSION: 1. 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 2. Index finger distal phalanx tip focal erosion. Dictated by: Johnson Sotomayor M.D. on 08/30/2024 at 17:38 Approved by: Johnson Stoomayor M.D. on 08/30/2024 at 17:41
--- NOTE | 2024-08-30 11:24 | DI.RAD.S_ITS ---
PROCEDURE: XR HAND RT MIN 3V INDICATIONS: OSTEOARTHRITIS TECHNIQUE: 4 views of the hand(s) acquired. COMPARISON: None. FINDINGS: Bones: No fractures or dislocations. Carpal bones are normally aligned. No suspicious bony lesions. Severe joint space narrowing and subluxation at the little finger DIP joint. Moderate joint space narrowing and sclerosis at the little finger PIP joint. Soft tissues: No suspicious soft tissue calcifications. IMPRESSION: Severe little finger DIP joint and moderate little finger PIP joint osteoarthritis. Dictated by: Johnson Sotomayor M.D. on 08/30/2024 at 17:37 Approved by: Johnson Sotomayor M.D. on 08/30/2024 at 17:38
== END ==
PROVIDERS: PCP Family Medicine; Referring Provider Family Medicine; Visit Provider Family Medicine
DX: M19.042 Primary osteoarthritis, left hand (principal); M19.041 Primary osteoarthritis, right hand
CPT/HCPCS: 73130